=== PATIENT | male | born 1995 | race Caucasian/White ===

== ENCOUNTER 2023-06-01 00:16 | Emergency (ER) | payer OTHER, BC | END 2023-06-01 01:10 | disposition home or self-care (01) | LOC: MW.ED 00:16 | DX: M25.562 Pain in left knee (principal); K21.9 Gastro-esophageal reflux disease without esophagitis; Z88.1 Allergy status to other antibiotic agents; Z88.2 Allergy status to sulfonamides; Z88.0 Allergy status to penicillin | CPT/HCPCS: 99283 ==